=== PATIENT | female | born 1975 | race Two or more races ===

== ENCOUNTER 2018-04-13 23:50 | Emergency (ER) | payer OTHER, MEDICAID ==
[~2018-04-13] VITALS: Ht 167.6 cm; Wt 45.0 kg
[2018-04-14] MEDS ORDERED: TETANUS, DIPHTHERIA, PERTUSSIS VAC/PF 0.5ML (>7YR OLD) IM ONE (00:30)
[2018-04-14] MEDS ORDERED: HYDROCODONE/ACETAMINOPHEN 5/325MG TABLET PO SCH (04:32)
[2018-04-14 04:40] VITALS: BP 112/73
== END 2018-04-14 05:09 | disposition home or self-care (01) ==
LOC: ER 23:50
DX: S00.81XA Abrasion of other part of head, initial encounter (principal); S60.221A Contusion of right hand, initial encounter; Y07.03 Male partner, perpetrator of maltreatment and neglect; Y04.2XXA Assault by strike against or bumped into by another person, initial encounter; Y93.89 Activity, other specified; Y92.89 Other specified places as the place of occurrence of the external cause; Z89.612 Acquired absence of left leg above knee; Z89.611 Acquired absence of right leg above knee; Z23 Encounter for immunization
CPT/HCPCS: 70486; 73130; 81025; 90471; 90715; 99284

== ENCOUNTER 2022-08-05 04:18 | Emergency (ER) | payer MEDICAID, OTHER ==
[~2022-08-05] VITALS: Ht 101.6 cm; Wt 69.0 kg
[2022-08-05] MEDS ORDERED: TETANUS, DIPHTHERIA, PERTUSSIS VAC/PF 0.5ML (>10YR OLD) IM ONE (05:45)
[2022-08-05] MEDS ORDERED: IBUP-2028 MT (10:14)
[2022-08-05] MEDS ORDERED: TOPUD PO (10:14)
[2022-08-05] MEDS ORDERED: ACETAMINOPHEN 325MG TABLET PO ONE (10:15)
[2022-08-05] MEDS ORDERED: IBUPROFEN 400MG TABLET PO ONE (10:15)
[2022-08-05 11:19] VITALS: BP 136/94
== END 2022-08-05 11:23 | disposition home or self-care (01) ==
LOC: ER 04:18
DX: S09.90XA Unspecified injury of head, initial encounter (principal); W18.39XA Other fall on same level, initial encounter; Y93.89 Activity, other specified; Y92.89 Other specified places as the place of occurrence of the external cause; Y99.8 Other external cause status; F10.129 Alcohol abuse with intoxication, unspecified; Y90.0 Blood alcohol level of less than 20 mg/100 ml
CPT/HCPCS: 99284

== ENCOUNTER 2023-01-13 04:54 | Emergency (ER) | payer OTHER ==
[~2023-01-13] VITALS: Ht 157.5 cm; Wt 82.0 kg
[~2023-01-13 04:54] MED LIST: IBUP-2028 MT; TOPUD PO
[2023-01-13 04:59] VITALS: BP 140/90; PULSE 89; RESP 18; TEMP 98.6; O2SAT 98
[2023-01-13] MEDS ORDERED: BACITRACIN ZINC OINT UDPKT TOP ONE ×2 (06:15→08:15)
[2023-01-13] MEDS ORDERED: KETOROLAC 60MG/2ML VIAL IM ONE (06:15)
[2023-01-13] MEDS ORDERED: TETANUS, DIPHTHERIA, PERTUSSIS VAC/PF 0.5ML (>10YR OLD) IM ONE (06:15)
[2023-01-13] MEDS ORDERED: LIDOCAINE HCL/EPINEPHRINE 1%-EPI 1:100,000 20 ML VIAL INFIL ONE (08:15)
== END 2023-01-13 09:36 | disposition home or self-care (01) ==
LOC: ER 05:02
DX: S01.01XA Laceration without foreign body of scalp, initial encounter (principal); Y08.89XA Assault by other specified means, initial encounter; Y93.89 Activity, other specified; Y92.89 Other specified places as the place of occurrence of the external cause; Y99.8 Other external cause status
CPT/HCPCS: 90715; 12002; 90471; 96372; 99284; J1885; J3490; Z7610 ×2

== ENCOUNTER 2023-01-23 10:42 | Emergency (ER) | payer OTHER ==
[~2023-01-23] VITALS: Ht 162.6 cm; Wt 63.0 kg
[2023-01-23 11:08] VITALS: BP 134/76; PULSE 64; RESP 20; TEMP 98.2; O2SAT 98
== END 2023-01-23 11:53 | disposition home or self-care (01) ==
LOC: ER 11:12
DX: R51.9 Headache, unspecified (principal); Z91.014 Allergy to mammalian meats; Z88.8 Allergy status to other drugs, medicaments and biological substances
CPT/HCPCS: 99281; Z7610